=== PATIENT | female | born 1990 | race Caucasian/White ===

== ENCOUNTER → 2018-07-30 11:56 | Emergency (ER) | payer OTHER ==
[~2018-07-30 11:56] MED LIST: Metoclopramide IV* 5 MG/ML 2 ML VIAL IV ONE; NS 0.9% 1000 ML** 1,000 ML IV ONE; Ondansetron INJ* 2 MG/ML VIAL IV ONE
[2018-07-30 16:24] VITALS: BP 118/60
--- NOTE | 2018-08-03 07:22 | ED ---
Abdominal Pain/Female - HPI Summary HPI Summary: Patient is a currently approximately 2 months presenting to the ED with nausea and vomiting. First OB appointment is August 13. She denies any vaginal bleeding. She endorses abdominal pain which began after n/v. She endorses nausea and vomiting since yesterday, 5+ times. Denies PAYAN, fevers, sweats, chills, diarrhea. Denies vaginal discharge. Patient not currently on vitamins. - History of Current Complaint Chief Complaint: EDNauseaVomitDiarrh Stated Complaint: 2 MOS . VOMITING Time Seen by Provider: 07/30/18 13:38 Hx Obtained From: Patient ?: No Onset/Duration: Sudden Onset Timing: Constant Severity Initially: Moderate Severity Currently: Moderate Pain Intensity: 0 Pain Scale Used: 0-10 Numeric Location: Diffuse Aggravating Factor(s): Nothing Alleviating Factor(s): Nothing Associated Signs and Symptoms: Positive: Nausea, Vomiting - Risk Factors Ectopic Risk Factor: Negative Ovarian Torsion Risk Factor: Reproductive Age Allergies/Adverse Reactions: Allergies Allergy/AdvReac Type Severity Reaction Status Date / Time ENVIRONMENT/SEASONAL HAYFEVER Allergy SNEEZE, Uncoded 01/24/16 13:23 EYES SWELL WATER, Home Medications: Home Medications Buprenorp/Nalox 8-2 MG FILM [Suboxone 8 mg-2 mg Sl Film] 1 film PO DAILY [History Confirmed 07/30/18] Gabapentin 300 mg PO TID 07/30/18 [History Confirmed 07/30/18] SUMAtriptan TAB* [Imitrex TAB*] 50 mg PO DAILY PRN 07/30/18 [History Confirmed 07/30/18] PMH/Surg Hx/FS Hx/Imm Hx Previously Healthy: Yes Endocrine/Hematology History: Denies: Hx Diabetes Cardiovascular History: Denies: Hx Hypertension, Hx Pacemaker/ICD History: Denies: Hx Renal Disease Musculoskeletal History: Reports: Other Musculoskeletal History Sensory History: Reports: Hx Contacts or Glasses - GLASSES Denies: Hx Hearing Aid Opthamlomology History: Reports: Hx Contacts or Glasses - GLASSES Neurological History: Reports: Hx Migraine - ONCE A WEEK, Other Neuro Impairments/Disorders - BIPOLAR DISORDER AND PTSD - CONTROL WITH MEDS Psychiatric History: Reports: Hx Anxiety - ON MEDS, Hx Panic Disorder - ANXIETY - Surgical History Surgery Procedure, Year, and Place: 2012 LEFT ORIF TIB/FIB WITH [facility]. ORAL SURGERY, [facility]. GALLBLADDER 09/2015 Hx Anesthesia Reactions: No - Immunization History Hx Pertussis Vaccination: No Immunizations Up to Date: Yes Infectious Disease History: No Infectious Disease History: Denies: Traveled Outside the [place] in Last 30 Days - Social History Occupation: Unemployed Lives: With Family Alcohol Use: None Hx Substance Use: No Substance Use Type: Reports: None Smoking Status (MU): Heavy Every Day Tobacco Smoker Type: Cigarettes Amount Used/How Often: 1/2 PPD Have You Smoked in the Last Year: Yes Review of Systems Constitutional: Negative Negative: Fever, Chills, Fatigue, Skin Diaphoresis Negative: Palpitations, Chest Pain Negative: Shortness Of Breath, Cough Positive: Abdominal Pain, Vomiting, Nausea. Negative: Diarrhea Genitourinary: Negative Positive: no symptoms reported, see HPI. Negative: burning, dysuria, discharge , hematuria, incontinence Negative: Arthralgia, Myalgia Psychological: Normal All Other Systems Reviewed And Are Negative: Yes Physical Exam Triage Information Reviewed: Yes Vital Signs On Initial Exam: Initial Vitals Temp Pulse Resp BP Pulse Ox 97.8 F 93 20 157/93 99 07/30/18 11:59 07/30/18 11:59 07/30/18 11:59 07/30/18 11:59 07/30/18 11:59 Vital Signs Reviewed: Yes Appearance: Positive: Well-Appearing, Well-Nourished Skin: Positive: Warm, Skin Color Reflects Adequate Perfusion Head/Face: Positive: Normal Head/Face Inspection Eyes: Positive: EOMI, Conjunctiva Clear Neck: Positive: Supple, No Lymphadenopathy Respiratory/Lung Sounds: Positive: Clear to Auscultation, Breath Sounds Present Cardiovascular: Positive: RRR, Pulses are Symmetrical in both Upper and Lower Extremities Abdomen Description: Positive: Soft. Negative: Distended, Guarding Musculoskeletal: Positive: Normal, Strength/ROM Intact Neurological: Positive: Speech Normal Psychiatric: Positive: Normal, Affect/Mood Appropriate AVPU Assessment: Alert Diagnostics - Vital Signs Vital Signs Temp Pulse Resp BP Pulse Ox 07/30/18 16:22 98.7 F 66 18 118/60 100 07/30/18 13:29 98.0 F 72 18 117/80 99 07/30/18 11:59 97.8 F 93 20 157/93 99 - Laboratory Lab Statement: Any lab studies that have been ordered have been reviewed, and results considered in the medical decision making process. Abdominal Pain Fem Course/Dx - Course Course Of Treatment: During his course of treatment, the patient's evaluated for nausea and vomiting in . Discussed treatment options with the patient. She does endorse diffuse lower abdominal pain, but denies any vaginal bleeding. As stated we will begin with fluids and nausea medications and reassess. She is given Zofran with minimal relief. On reassessment after Reglan given, patient is feeling improved and is okay for discharge at this time. She denies any abdominal pain or nausea and vomiting at this time. She denies any other concerns. - Diagnoses Provider Diagnoses: Nausea/vomiting in Discharge - Sign-Out/Discharge Documenting (check all that apply): Patient Departure Patient Received Moderate/Deep Sedation with Procedure: No - Discharge Plan Condition: Stable Disposition: HOME Patient Education Materials: Nausea and Vomiting in (ED) Referrals: Brittani Perry PA [Primary Care Provider] - Additional Instructions: Take Reglan 10 mg up to 4 times daily as needed for nausea and vomiting Drink plenty of water If you develop any worsening or changing symptoms, return to the ED - Billing Disposition and Condition Condition: STABLE Disposition: Home
== END | disposition home or self-care (01) ==
LOC: ED 11:56
DX: O21.0 Mild hyperemesis gravidarum (principal); Z3A.08 8 weeks gestation of pregnancy; O99.332 Smoking (tobacco) complicating pregnancy, second trimester; F17.210 Nicotine dependence, cigarettes, uncomplicated; O99.342 Other mental disorders complicating pregnancy, second trimester; F41.9 Anxiety disorder, unspecified
CPT/HCPCS: 96361; 96374; 96375; 99283; J2765